=== PATIENT | female | born 1950 | race African-American/Black ===

== ENCOUNTER 2020-04-05 10:32 | Emergency (ER) | payer OTHER ==
[~2020-04-05] VITALS: Ht 160 cm; Wt 63.0 kg
[2020-04-05 12:27] LABS: ABSOLUTE NEUTROPHILS 5.1 thou/uL (1.4-8.2); BASOPHILS 0.6 % (0.0-2.0); HEMATOCRIT 27.9 % (37.0-47.0); LYMPHOCYTES 21.6 % (24.0-44.0); MCHC 32.2 g/dL (28.0-37.0); MCV 90.1 fL (80.0-100.0); MONOCYTES 5.7 % (1.0-8.0); PLATELET COUNT 324 thou/uL (150-400); POLYS 68.1 % (36.0-66.0); RBC 3.09 mil/uL (4.20-5.00); RDW 17.5 % (10.5-14.5); WBC 7.6 thou/uL (4.0-11.0)
[2020-04-05 12:29] LABS: URINE BILIRUBIN NEGATIVE (Negative); URINE BLOOD NEGATIVE (Negative); URINE CLARITY CLEAR; URINE COLOR YELLOW; URINE GLUCOSE-RANDOM* NEGATIVE (Negative); URINE KETONES NEGATIVE (Negative); URINE LEUKOCYTES-REFLEX NEGATIVE (Negative); URINE NITRITE-REFLEX NEGATIVE (Negative); URINE PROTEIN (DIPSTICK) NEGATIVE (Negative); URINE SPECIFIC GRAVITY 1.015 (1.005-1.035); URINE UROBILINOGEN 0.2 E.U./dl (0.2-1.0)
[2020-04-05 12:40] LABS: ANION GAP 14 mmol/L (7-16); BUN 6 mg/dL (7-18); CALCIUM 8.8 mg/dL (8.5-10.1); CHLORIDE 101 mmol/L (98-107); CO2 26 mmol/L (21-32); CREATININE 0.8 mg/dL (0.6-1.0); GLUCOSE 105 mg/dL (74-106); SODIUM 141 mmol/L (136-145)
[2020-04-05 12:41] LABS: POTASSIUM 3.4 mmol/L (3.5-5.1)
[2020-04-05 12:48] LABS: ALBUMIN 2.5 g/dL (3.4-5.0); LIPASE 127 U/L (73-393); SGOT 46 U/L (15-37); SGPT 17 U/L (30-65); TOTAL BILIRUBIN 0.7 mg/dL (0.2-1.0); TOTAL PROTEIN 7.4 g/dL (6.4-8.2); TROPONIN-I <0.06 ng/mL (<0.06)
[2020-04-05] MEDS ORDERED: OMEPRAZOLE 20 M20 M1 PO (14:42)
[2020-04-05] MEDS ORDERED: CARAFATE 1 GM TA1 G1 PO (14:42)
[2020-04-05 14:52] VITALS: BP 128/77
--- NOTE | 2020-04-06 07:15 | EKG ---
[address] [place] [place] [address] ELECTROCARDIOGRAM REPORT Name: MONICA ARAYA [id number] Admission: 04/05/20 Attend Phys: Discharge: 04/05/20 Date of : 50 Report #: [id number] [facility] ED Test Date: 2020-04-05 Test Time: 11:43:13 Pat Name: MONICA ARAYA Department: Room: Gender: F Mlt: Hazel : 1950 Requested By: Chris Clemente Order Number: [id number] MD: Cheikh Welch Measurements Intervals [place] Rate: 90 P: 37 VA: 147 QRS: -51 QRSD: 94 T: 6 QT: 386 QTc: 473 Interpretive Statements Sinus rhythm Left anterior fascicular block Abnormal R-wave progression, late transition Borderline T abnormalities, anterior leads No previous ECG available for comparison Electronically Signed On 04-06-2020 7:14:51 [employer] by Cheikh Welch [email or web address] <ELECTRONICALLY SIGNED> By: Cheikh Welch MD, [facility] 04/06/20 0714 1143 1143 Cheikh Welch MD, FACC /EPI
== END 2020-04-05 14:54 | disposition home or self-care (01) ==
LOC: ER 10:32
PROVIDERS: Physician Assistant
DX: K29.70 Gastritis, unspecified, without bleeding (principal); K80.20 Calculus of gallbladder without cholecystitis without obstruction; K74.60 Unspecified cirrhosis of liver; I10 Essential (primary) hypertension; F17.210 Nicotine dependence, cigarettes, uncomplicated; Z86.2 Personal history of diseases of the blood and blood-forming organs and certain disorders involving the immune mechanism; Z88.8 Allergy status to other drugs, medicaments and biological substances